=== PATIENT | female | born 2000 | race African-American/Black ===

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

== ENCOUNTER 2021-03-11 11:32 | Outpatient (CLI) | payer OTHER | END 2021-03-11 11:33 | disposition home or self-care (01) | LOC: BICRAD 11:32 | PROVIDERS: ATTEND Family Medicine | DX: M54.50 Low back pain, unspecified (principal); M54.6 Pain in thoracic spine; M41.9 Scoliosis, unspecified | CPT/HCPCS: 72072; 72100 ==

== ENCOUNTER 2024-02-17 19:59 | Emergency (ER) | payer OTHER ==
[2024-02-17] MEDS ORDERED: hydrOXYzine 25 MG TAB ONE (20:31)
== END 2024-02-17 22:34 | disposition home or self-care (01) ==
LOC: ERS 19:59
DX: M25.561 Pain in right knee (principal); M54.2 Cervicalgia; E10.9 Type 1 diabetes mellitus without complications; V89.2XXA Person injured in unspecified motor-vehicle accident, traffic, initial encounter; Y93.89 Activity, other specified
CPT/HCPCS: 72125

== ENCOUNTER 2024-02-22 17:46 | Emergency (ER) | payer OTHER ==
[2024-02-22 18:11] LABS: #Basophils Less than 0.03 10x3/uL (0.0-0.2); #Eosinophils Less than 0.03 10x3/uL (0.0-0.7); %Basophils 0.3 % (0.0-1.0); %Eosinophils 0.1 % (0.0-10.0); %Lymphocytes 19.5 % (21.0-51.0); %Monocytes 6.9 % (0.0-10.0); %Neutrophils 72.9 % (42.0-75.0); Hemoglobin 13.3 g/dL (12.0-16.0); Mean Corpuscular HGB CONC 32.4 g/dL (32.0-36.0); Mean Corpuscular Hemoglobin 28.2 pg (27.0-31.0); Mean Corpuscular Volume 86.9 fL (78.0-98.0); Mean Platelet Volume 9.5 fL (7.4-10.4); Platelet Count 363 10x3/uL (130-400); RBC Distribution Width 12.3 % (11.5-14.5); Red Blood Cell (RBC) Count 4.72 mill/uL (4.20-5.40)
[2024-02-22 18:43] LABS: ALT (SGPT) 10 U/L (8-55); AST (SGOT) 15 U/L (5-34); Albumin 3.8 g/dL (3.5-5.0); Alkaline Phosphatase 88 U/L (40-110); Anion Gap 16 mmol/L (10-20); BUN (Urea Nitrogen) 4 mg/dL (7.0-18.7); Bilirubin, Total 0.6 mg/dL (0.2-1.2); Calc. Creatinine Clearance 0 mL/min (70-130); Calcium 9.8 mg/dL (7.8-10.44); Carbon Dioxide 24 mmol/L (22-29); Chloride 107 mmol/L (98-107); Estimated GFR 103; Globulin 4.2 g/dL (2.4-3.5); Glucose 37 mg/dL (70-105); Potassium 3.7 mmol/L (3.5-5.1); Sodium 143 mmol/L (136-145)
[2024-02-22 18:53] LABS: BHCG - Serum Negative (NEGATIVE); Pregs Control Background? CLEAR/WHITE (CLR/WHITE); Pregs Control Bar Appear? YES (CONTROL BAR)
[2024-02-22] MEDS ORDERED: Ondansetron PF 4 MG/2 ML Vial ONE (19:17)
[2024-02-22] MEDS ORDERED: Acetaminophen 500 MG TAB ONE (19:28)
[2024-02-22] MEDS ORDERED: Ketorolac Tromethamine 30 MG (1 mL) VIAL ONE (19:29)
[2024-02-22 19:40] LABS: Actual Bicarbonate (HCO3v) 24.9 mEq/L (22-28); Base Excess -2.9 mEq/L (-2.0 to +3.0); Calcium, Ionized (venous) 1.23 mmol/L (1.16-1.32); Chloride (VBG) 103 mmol/L (98-106); Hematocrit-VBG 43 % (36.0-47.0); Hemoglobin (Hb) 14.5 g/dL (11.7-15.5); Potassium (VBG) 3.72 mmol/L (3.70-5.30); Sodium 144 mmol/L (133-146); pH (venous) 7.268 (7.32-7.43)
[2024-02-22 21:00] LABS: Actual Bicarbonate (HCO3v) 25.1 mEq/L (22-28); Base Excess -1.9 mEq/L (-2.0 to +3.0); Calcium, Ionized (venous) 1.12 mmol/L (1.16-1.32); Chloride (VBG) 104 mmol/L (98-106); Hematocrit-VBG 42 % (36.0-47.0); Hemoglobin (Hb) 14.4 g/dL (11.7-15.5); Potassium (VBG) 3.89 mmol/L (3.70-5.30); Sodium 141 mmol/L (133-146); pH (venous) 7.308 (7.32-7.43)
== END 2024-02-22 21:52 | disposition home or self-care (01) ==
LOC: ERS 17:46
DX: R11.2 Nausea with vomiting, unspecified (principal); G43.909 Migraine, unspecified, not intractable, without status migrainosus; E10.649 Type 1 diabetes mellitus with hypoglycemia without coma
CPT/HCPCS: 36415; 36416; 80053; 82010; 82805; 84703; 85025; 96374; 96375; J1885; J2405

== ENCOUNTER 2024-02-29 17:02 | Inpatient (IN) | payer OTHER ==
[~2024-02-29 17:02] MED LIST: Iopamidol-370 76% 500 ML MDV (1 ML CHARGE) ONE
[2024-02-29 17:29] LABS: #Basophils Less than 0.03 10x3/uL (0.0-0.2); #Eosinophils Less than 0.03 10x3/uL (0.0-0.7); %Basophils 0.3 % (0.0-1.0); %Eosinophils 0.3 % (0.0-10.0); %Lymphocytes 25.3 % (21.0-51.0); %Monocytes 4.7 % (0.0-10.0); %Neutrophils 69.1 % (42.0-75.0); Hematocrit 40.3 % (36.0-47.0); Hemoglobin 13.2 g/dL (12.0-16.0); Mean Corpuscular HGB CONC 32.8 g/dL (32.0-36.0); Mean Corpuscular Hemoglobin 28.4 pg (27.0-31.0); Mean Corpuscular Volume 86.9 fL (78.0-98.0); Mean Platelet Volume 9.1 fL (7.4-10.4); Platelet Count 375 10x3/uL (130-400); Red Blood Cell (RBC) Count 4.64 mill/uL (4.20-5.40)
[2024-02-29 17:50] LABS: Phosphorus 2.9 mg/dL (2.3-4.7)
[2024-02-29 17:52] LABS: Actual Bicarbonate (HCO3v) 19.2 mEq/L (22-28); Analyzer IN Cardio ER; Base Excess -6.8 mEq/L (-2.0 to +3.0); Chloride (VBG) 100 mmol/L (98-106); Hematocrit-VBG 43 % (36.0-47.0); Hemoglobin (Hb) 14.5 g/dL (11.7-15.5); Potassium (VBG) 4.52 mmol/L (3.70-5.30); Sodium 140 mmol/L (133-146); pH (venous) 7.297 (7.32-7.43)
[2024-02-29 17:57] LABS: ALT (SGPT) 13 U/L (8-55); AST (SGOT) 19 U/L (5-34); Albumin 3.9 g/dL (3.5-5.0); Alkaline Phosphatase 95 U/L (40-110); Anion Gap 22 mmol/L (10-20); BUN (Urea Nitrogen) 7 mg/dL (7.0-18.7); Bilirubin, Total 0.5 mg/dL (0.2-1.2); Calc. Creatinine Clearance 0 mL/min (70-130); Calcium 9.6 mg/dL (7.8-10.44); Carbon Dioxide 16 mmol/L (22-29); Chloride 103 mmol/L (98-107); Estimated GFR 69; Globulin 4.2 g/dL (2.4-3.5); Glucose 429 mg/dL (70-105); Lipase 8 U/L (8-78); Magnesium 1.6 mg/dL (1.6-2.6); Potassium 4.3 mmol/L (3.5-5.1); Protein, Total 8.1 g/dL (6.0-8.3); Sodium 137 mmol/L (136-145)
[2024-02-29 17:58] LABS: Troponin I Less than 0.010 ng/mL (< 0.028)
[2024-02-29 18:50] LABS: Bilirubin Negative (Negative); Blood, Urine Negative (Negative); CAUTI Indications for Culture Pelvic or flank pain; Clarity Clear (Clear); Glucose, Urine (Dipstick) Greater than 1000 mg/dL (Negative); Ketone, Urine 150 mg/dL (Negative); Leukocyte Negative Leu/uL (Negative); Nitrite Negative (Negative); Protein, Urine (Dipstick) Negative (Neg-Trace); RBC/HPF 0-3 HPF (0-3); Squamous Epithelial 0-3 HPF (0-3); Urobilinogen Normal mg/dL (Less than 2); WBC/HPF 0-3 HPF (0-3); pH, Urine 5.5 (5.0-9.0)
[2024-02-29 18:51] LABS: Bacteria/HPF 1+ HPF (None Seen)
[2024-02-29 18:54] LABS: Urine Culture Reflex No No
[2024-02-29 18:54] LABS: BHCG - Serum Negative (NEGATIVE); Pregs Control Background? CLEAR/WHITE (CLR/WHITE); Pregs Control Bar Appear? YES (CONTROL BAR)
[2024-02-29] MEDS ORDERED: INSULIN REGULAR IN 0.9 % NACL 100 ML ONE (19:09)
[2024-02-29] MEDS ORDERED: LevoFLOXacin 750 mg/D5W 150 ml Premix Bag ONE (20:18)
[2024-02-29 20:56] LABS: Anion Gap 16 mmol/L (10-20); BUN (Urea Nitrogen) 6 mg/dL (7.0-18.7); Calc. Creatinine Clearance 0 mL/min (70-130); Calcium 8.4 mg/dL (7.8-10.44); Carbon Dioxide 16 mmol/L (22-29); Chloride 111 mmol/L (98-107); Estimated GFR 106; Glucose 222 mg/dL (70-105); Potassium 3.7 mmol/L (3.5-5.1); Sodium 139 mmol/L (136-145)
[2024-02-29] MEDS ORDERED: Promethazine 25 MG TAB PO PRN (21:09)
[2024-02-29] MEDS ORDERED: Dextrose 5% in Water 1,000 ML IV PRN (21:10)
[2024-02-29] MEDS ORDERED: Dextrose 50% Abboject 50 ML SYRINGE SLOW IVP PRN (21:10)
[2024-02-29] MEDS ORDERED: Insulin Lispro 100 UNIT/ML 10 ML VIAL SC PRN (21:10)
[2024-02-29] MEDS ORDERED: Glucagon 1 MG/ML KIT IM PRN (21:10)
[2024-02-29] MEDS ORDERED: Acetaminophen 650 MG Suppository PR PRN (21:11)
[2024-02-29] MEDS ORDERED: Acetaminophen 325 MG TAB PO PRN (21:11)
[2024-02-29] MEDS ORDERED: Ondansetron ODT 4 MG TAB PO PRN (21:11)
[2024-02-29] MEDS ORDERED: Calcium Carbonate 500 MG ChewTAB PO PRN (21:17)
[2024-02-29 21:44] LABS: Hemoglobin A1c 8.1 % (4.0-6.0)
[2024-02-29] MEDS ORDERED: hydrOXYzine 25 MG TAB ONE (21:47)
[2024-02-29] MEDS ORDERED: Ondansetron PF 4 MG/2 ML Vial ONE (21:52)
[2024-02-29] MEDS: Lactated Ringer's 1,000 ML IV SCH (22:05)
[2024-02-29] MEDS: Droperidol 5 MG/2 ML VIAL SLOW IVP SCH (23:31)
[2024-03-01] MEDS ORDERED: [UNRECOGNIZED DRUG - SUPPLY] SC SCH (00:30)
[2024-03-01 00:44] VITALS: BMI 26.4
[2024-03-01 04:08] LABS: #Basophils Less than 0.03 10x3/uL (0.0-0.2); #Eosinophils Less than 0.03 10x3/uL (0.0-0.7); %Basophils 0.2 % (0.0-1.0); %Lymphocytes 9.1 % (21.0-51.0); %Monocytes 3.8 % (0.0-10.0); %Neutrophils 86.3 % (42.0-75.0); Hematocrit 41.5 % (36.0-47.0); Hemoglobin 13.2 g/dL (12.0-16.0); Mean Corpuscular HGB CONC 31.8 g/dL (32.0-36.0); Mean Corpuscular Hemoglobin 28.3 pg (27.0-31.0); Mean Corpuscular Volume 88.9 fL (78.0-98.0); Mean Platelet Volume 9.8 fL (7.4-10.4); Platelet Count 366 10x3/uL (130-400); RBC Distribution Width 12.1 % (11.5-14.5); Red Blood Cell (RBC) Count 4.67 mill/uL (4.20-5.40)
[2024-03-01] MEDS: Ondansetron PF 4 MG/2 ML Vial IVP PRN (04:10)
[2024-03-01 04:33] LABS: Anion Gap 28 mmol/L (10-20); BUN (Urea Nitrogen) 10 mg/dL (7.0-18.7); Calc. Creatinine Clearance 79 mL/min (70-130); Calcium 9.6 mg/dL (7.8-10.44); Carbon Dioxide 8 mmol/L (22-29); Chloride 102 mmol/L (98-107); Estimated GFR 57; Glucose 623 mg/dL (70-105); Potassium 5.1 mmol/L (3.5-5.1); Sodium 133 mmol/L (136-145)
[2024-03-01] MEDS: Lactated Ringer's 1,000 ML IV SCH (05:15)
[2024-03-01] MEDS: INSULIN REGULAR IN 0.9 % NACL 100 ML IVPB SCH (05:22)
[2024-03-01 06:46] LABS: Glucose 573 mg/dL (70-105)
[2024-03-01] MEDS: Rosuvastatin 5 MG TAB PO SCH (08:48)
[2024-03-01] MEDS: Famotidine 20 MG TAB PO SCH (08:50)
[2024-03-01] MEDS: cefTRIAXone\\ROCEPHIN 1 GM in Sodium Chloride 0.9% 100 ML IVPB SCH (08:50)
[2024-03-01] MEDS: Famotidine/PF 20 mg/2ml Vial SLOW IVP SCH (08:50)
[2024-03-01 15:27] LABS: Anion Gap 19 mmol/L (10-20); BUN (Urea Nitrogen) 7 mg/dL (7.0-18.7); Calc. Creatinine Clearance 110 mL/min (70-130); Calcium 9.2 mg/dL (7.8-10.44); Carbon Dioxide 12 mmol/L (22-29); Chloride 112 mmol/L (98-107); Estimated GFR 85; Glucose 136 mg/dL (70-105); Potassium 4.5 mmol/L (3.5-5.1); Sodium 138 mmol/L (136-145)
[2024-03-01] MEDS: Ketorolac Tromethamine 30 MG (1 mL) VIAL IVP SCH (16:56)
[2024-03-01 20:04] LABS: Anion Gap 18 mmol/L (10-20); BUN (Urea Nitrogen) 7 mg/dL (7.0-18.7); Calc. Creatinine Clearance 115 mL/min (70-130); Calcium 8.9 mg/dL (7.8-10.44); Carbon Dioxide 12 mmol/L (22-29); Chloride 111 mmol/L (98-107); Estimated GFR 90; Glucose 173 mg/dL (70-105); Magnesium 1.6 mg/dL (1.6-2.6); Phosphorus 3.2 mg/dL (2.3-4.7); Potassium 4.2 mmol/L (3.5-5.1); Sodium 137 mmol/L (136-145)
[2024-03-01] MEDS ORDERED: Dextrose 5% in Water 1,000 ML IV PRN (20:52)
[2024-03-01] MEDS ORDERED: Dextrose 50% Abboject 50 ML SYRINGE SLOW IVP PRN (20:52)
[2024-03-01] MEDS ORDERED: Glucagon 1 MG/ML KIT IM PRN (20:52)
[2024-03-01] MEDS: Sodium Bicarbonate Tab 325 MG TAB PO SCH (21:51)
[2024-03-01] MEDS: Insulin Glargine 30 UNITS/0.3 ML VIAL SC SCH (21:51)
[2024-03-01] MEDS: Enoxaparin 40 MG (0.4 mL) SYRINGE SC SCH (21:51)
[2024-03-02] MEDS: Insulin Lispro 100 UNIT/ML 10 ML VIAL SC PRN ×2 (00:04→13:00)
[2024-03-02 03:38] LABS: #Basophils 0.03 10x3/uL (0.0-0.2); #Eosinophils Less than 0.03 10x3/uL (0.0-0.7); %Basophils 0.3 % (0.0-1.0); %Lymphocytes 36.9 % (21.0-51.0); %Monocytes 6.6 % (0.0-10.0); Hemoglobin 11.1 g/dL (12.0-16.0); Mean Corpuscular HGB CONC 32.6 g/dL (32.0-36.0); Mean Corpuscular Hemoglobin 28.5 pg (27.0-31.0); Mean Corpuscular Volume 87.2 fL (78.0-98.0); Mean Platelet Volume 9.3 fL (7.4-10.4); Platelet Count 335 10x3/uL (130-400); RBC Distribution Width 12.4 % (11.5-14.5)
[2024-03-02 03:53] LABS: Albumin 2.8 g/dL (3.5-5.0); Anion Gap 17 mmol/L (10-20); BUN (Urea Nitrogen) 8 mg/dL (7.0-18.7); BUN/Creatinine Ratio 6.67; Calc. Creatinine Clearance 88 mL/min (70-130); Calcium 8.9 mg/dL (7.8-10.44); Carbon Dioxide 13 mmol/L (22-29); Chloride 108 mmol/L (98-107); Estimated GFR 65; Glucose 289 mg/dL (70-105); Magnesium 1.6 mg/dL (1.6-2.6); Phosphorus 2.6 mg/dL (2.3-4.7); Potassium 4.2 mmol/L (3.5-5.1); Sodium 134 mmol/L (136-145)
[2024-03-02] MEDS ORDERED: Glucagon 1 MG/ML KIT IM PRN (08:33)
[2024-03-02] MEDS ORDERED: Dextrose 50% Abboject 50 ML SYRINGE SLOW IVP PRN (08:33)
[2024-03-02] MEDS ORDERED: Dextrose 5% in Water 1,000 ML IV PRN (08:33)
[2024-03-02] MEDS: Sodium Chloride 0.9% 1,000 ML IV SCH (09:59)
[2024-03-02] MEDS: Insulin Glargine 30 UNITS/0.3 ML VIAL SC SCH (09:59)
[2024-03-02 20:21] LABS: Calc. Creatinine Clearance 112 mL/min (70-130); Estimated GFR 85
[2024-03-02 20:23] LABS: Anion Gap 15 mmol/L (10-20); BUN (Urea Nitrogen) 6 mg/dL (7.0-18.7); Calcium 8.8 mg/dL (7.8-10.44); Carbon Dioxide 16 mmol/L (22-29); Chloride 109 mmol/L (98-107); Glucose 64 mg/dL (70-105); Magnesium 1.5 mg/dL (1.6-2.6); Phosphorus 2.8 mg/dL (2.3-4.7); Potassium 3.5 mmol/L (3.5-5.1); Sodium 136 mmol/L (136-145)
[2024-03-03 06:42] LABS: #Basophils 0.03 10x3/uL (0.0-0.2); %Basophils 0.5 % (0.0-1.0); %Eosinophils 1.1 % (0.0-10.0); %Lymphocytes 51.1 % (21.0-51.0); %Neutrophils 37.1 % (42.0-75.0); Hematocrit 33.7 % (36.0-47.0); Mean Corpuscular HGB CONC 32.6 g/dL (32.0-36.0); Mean Corpuscular Hemoglobin 28.1 pg (27.0-31.0); Platelet Count 279 10x3/uL (130-400); RBC Distribution Width 12.6 % (11.5-14.5); Red Blood Cell (RBC) Count 3.92 mill/uL (4.20-5.40)
[2024-03-03 07:04] LABS: Calc. Creatinine Clearance 116 mL/min (70-130); Estimated GFR 90
[2024-03-03 07:05] LABS: Albumin 2.8 g/dL (3.5-5.0); Anion Gap 12 mmol/L (10-20); BUN (Urea Nitrogen) 5 mg/dL (7.0-18.7); BUN/Creatinine Ratio 5.43; Calcium 8.6 mg/dL (7.8-10.44); Carbon Dioxide 20 mmol/L (22-29); Chloride 109 mmol/L (98-107); Glucose 234 mg/dL (70-105); Magnesium 1.4 mg/dL (1.6-2.6); Phosphorus 2.9 mg/dL (2.3-4.7); Potassium 3.6 mmol/L (3.5-5.1); Sodium 137 mmol/L (136-145)
[2024-03-03] MEDS ORDERED: Electrolyte Replacement Protocol 1 EACH FS SCH (09:15)
[2024-03-03] MEDS ORDERED: Electrolyte Replacement Protocol FS PRN (09:30)
[2024-03-03] MEDS: Magnesium Sulfate In Water 4 GM in Premix 1 BAG IVPB SCH (09:50)
[2024-03-03 14:43] VITALS: BP 108/73; TEMP 97.8
== END 2024-03-03 15:06 | disposition home or self-care (01) | DRG 638 ==
LOC: ERS 17:02 → T4-A 21:19 → IMCU/EMU 03-01 05:11 → T4-B 03-02 18:27
PROVIDERS: ADMIT Student in an Organized Health Care Education/Training Program; ATTEND Internal Medicine
DX: E10.10 Type 1 diabetes mellitus with ketoacidosis without coma (principal); N12 Tubulo-interstitial nephritis, not specified as acute or chronic; N17.9 Acute kidney failure, unspecified; Z88.5 Allergy status to narcotic agent; K21.9 Gastro-esophageal reflux disease without esophagitis; G47.33 Obstructive sleep apnea (adult) (pediatric); F41.9 Anxiety disorder, unspecified
CPT/HCPCS: 36415; 36416; 71045; 74177; 80048; 80053; 80069; 81001; 82010; 82805; 83036; 83690; 83735; 84100; 84484; 84703; 85025; 93005; 94760; 96374; 96375; J0696; J1650; J1790; J1815; J1885; J1956; J2405; J3475; J3490; J7030; J7120; Q9967